=== PATIENT | female | born 1935 | race African-American/Black ===

== ENCOUNTER 2019-05-17 14:51 | Emergency (ER) | payer OTHER, MEDICAID ==
--- NOTE | 2019-05-17 15:21 | NUR ---
PATIENT ARRIVED AT UNIT ACCOMPANIED BY DAUGHTER. PER DAUGHTER, PATIENT HAD EPISODES OF CHILLS AND WITNESSED BY DAUGHTER. PATIENT CALM AND RELAXED. NO ACUTE DISTRESS. CONNECTED TO MONITOR. WILL CONTINUE TO MONITOR ACCORDINGLY
[2019-05-17 15:30] LABS: BASOPHILS # (AUTO) 0.1 /CMM (0.0-0.2); EOSINOPHILS % (AUTO) 1.4 % (0.0-6.0); HEMATOCRIT 35 % (33-45); HEMOGLOBIN 11.6 g/dL (11.5-14.8); LYMPHOCYTES # (AUTO) 2.6 /CMM (0.8-4.8); LYMPHOCYTES % (AUTO) 25.5 % (20.0-44.0); MEAN CORPUSCULAR HGB CONC 33 g/dl (31.0-36.0); MEAN CORPUSCULAR VOLUME 93 fL (82-100); MONOCYTES % (AUTO) 9.7 % (2.0-12.0); NEUTROPHILS # (AUTO) 6.3 /CMM (1.8-8.9); NEUTROPHILS % (AUTO) 62.4 % (43.0-81.0); PLATELET COUNT (AUTO) 392 /CMM (150-450); RED BLOOD CELL COUNT(AUTO) 3.78 MIL/uL (4.0-5.2); WHITE BLOOD COUNT (AUTO) 10.1 K/uL (4.3-11.0)
[2019-05-17] MEDS ORDERED: ONDANSETRON HCL/PF 4 MG/2 ML VIAL IVP ONE (15:30)
[2019-05-17] MEDS ORDERED: IV NS 0.9% 1,000 ML BAG IV ONE (15:30)
[2019-05-17 15:43] LABS: CALCIUM, SERUM 9.6 mg/dL (8.5-10.1); CREATININE 0.8 mg/dL (0.6-1.3); POTASSIUM 3.1 mmol/L (3.5-5.1)
[2019-05-17] MEDS ORDERED: ONDANSETRON HCL/PF 4 MG/2 ML VIAL ONE (15:47)
[2019-05-17 15:48] LABS: ALBUMIN 2.7 g/dL (3.4-5.0); BILIRUBIN,TOTAL 0.3 mg/dL (0.2-1.0); TOTAL PROTEIN, SERUM 6.4 g/dL (6.4-8.2)
--- NOTE | 2019-05-17 16:15 | NUR ---
CALLED [facility] [phone]
[2019-05-17 16:17] LABS: APPEARANCE,URINE Clear (CLEAR); BILIRUBIN,URINE Negative (NEGATIVE); BLOOD, URINE Negative Ery/uL (NEGATIVE); COLOR,URINE Yellow (YELLOW); KETONES,URINE Negative (NEGATIVE); LEUKOCYTE ESTERASE ,URINE Negative (NEGATIVE); NITRITE, URINE Negative (NEGATIVE); PROTEIN,URINE Negative (NEGATIVE); UGLUCOSE Negative (NEGATIVE); UROBILINOGEN,URINE 0.2 EU/dL (0.2)
[2019-05-17] MEDS ORDERED: ASPIRIN 81 MG TAB.CHEW ONE (16:28)
[2019-05-17] MEDS ORDERED: ASPIRIN 81 MG TAB.CHEW PO ONE (16:30)
[2019-05-17 17:27] VITALS: BP 140/78
--- NOTE | 2019-05-17 17:27 | NUR ---
Patient discharged to home in stable condition. Written and verbal after care instructions given. Patient verbalizes understanding of instruction.
--- NOTE | 2019-05-17 17:28 | NUR ---
Patient discharged to home in stable condition. Written and verbal after care instructions given. Patient'S SON AND DAUGHTER verbalizes understanding of instruction.
== END 2019-05-17 17:28 | disposition home or self-care (01) ==
LOC: ER 14:59
DX: R60.0 Localized edema (principal); R68.83 Chills (without fever); E86.0 Dehydration
CPT/HCPCS: 36415; 71045; 80048; 80076; 81001; 83690; 84484; 85025; 85730; 93005; 96360; 99284; J7030 ×2; 81000-TC; J2405